=== PATIENT | female | born 1975 | race Caucasian/White ===

== ENCOUNTER 2016-09-25 10:01 | Emergency (ER) | payer MEDICAID ==
[~2016-09-25] VITALS: Ht 162.6 cm; Wt 96.4 kg
[~2016-09-25 10:01] MED LIST: ADIPEX-P37.5 MG PO; AMOXICILLIN 50500 MG PO; BACTRIM DS 8001 TAB PO; BIRTH CONTROL PO; BUSPAR DIVIDOSE30 MG PO; BUSPAR10 MG PO; CALCIUM 600600 M2 PO; CEFTIN500 MG PO; CIPRO500 MG PO; FLEXERIL10 MG PO; FLEXERIL5 MG PO; LORACET; LORTAB 5/500 501 TAB PO; MACROBID100 MG PO; MOTRIN 200200 MG/TAB PO; MOTRIN 800800 MG/TAB PO; MOTRIN600 MG PO; NO HOME MEDICATIONS; NORCO 325 MG-51 TAB PO; PERCOCET 325 MG1 TA2 PO; PERCR 7.5 PO; PHENAZOPYRIDIN200 M1 PO; PHENERGAN 25 TA25 MG PO; PHENERMINE; PHENTERMINE15 MG PO; PREDNISONE20 MG PO; PRISTIQ50 MG PO; PROMETHAZINE25 MG RC; PROVERA 10MG10 MG; PYRIDIUM 100MG100 MG PO; PYRIDIUM200 M1 PO; TRAZADONE HYDR100 MG PO; TRAZODONE HCL100 MG PO; TUSS PO; VENTOLIN0.09 MG IH; VICODIN 5/5001 UDTAB PO; VOLTAREN 75 DR75 MG PO
[2016-09-25 10:02] VITALS: BP 154/96; PULSE 98; TEMP 98.1
[2016-09-25] MEDS ORDERED: NORCO 325 MG-51 TAB PO (12:30)
== END 2016-09-25 12:47 | disposition home or self-care (01) ==
LOC: COL.ER 10:01
DX: R51 Headache (principal); F17.210 Nicotine dependence, cigarettes, uncomplicated

== ENCOUNTER → 2016-10-18 | Outpatient (CLI) | payer MEDICAID ==
[~2016-10-18] MED LIST changes: +DOXYCYCLINE 10100 MG PO; +PHENERGAN W/CO120 M1 PO; +PROAIR HFA0.09 MG/AC IH; +SEROQUEL50 MG PO; +TOPAMAX 100MG100 M1 PO; +WELLBUTRIN SR200 MG PO; +XANAX .25M0.25 MG/TA PO
== END ==
LOC: COL.RAD 11:47
DX: R51 Headache (principal)
CPT/HCPCS: A9585

== ENCOUNTER → 2016-10-30 | Outpatient (CLI) | payer MEDICAID | LOC: COL.RAD 12:00 | DX: R51 Headache (principal) ==

== ENCOUNTER 2017-01-30 22:44 | Emergency (ER) | payer MEDICAID ==
[~2017-01-30] VITALS: Ht 162.6 cm; Wt 95.5 kg
[~2017-01-30 22:44] MED LIST changes: -DOXYCYCLINE 10100 MG PO; -PHENERGAN W/CO120 M1 PO; -PROAIR HFA0.09 MG/AC IH; -SEROQUEL50 MG PO; -TOPAMAX 100MG100 M1 PO; -WELLBUTRIN SR200 MG PO; -XANAX .25M0.25 MG/TA PO
[2017-01-30 22:48] VITALS: BP 130/58; TEMP 97.7
[2017-01-30] MEDS ORDERED: DOXYCYCLINE 10100 MG PO (23:34)
[2017-01-30] MEDS ORDERED: PREDNISONE20 MG PO (23:34)
[2017-01-30] MEDS ORDERED: PHENERGAN W/CO120 M1 PO (23:34)
[2017-01-30] MEDS ORDERED: WELLBUTRIN SR200 MG PO (23:48)
[2017-01-30] MEDS ORDERED: SEROQUEL50 MG PO (23:49)
[2017-01-30] MEDS ORDERED: TOPAMAX 100MG100 M1 PO (23:49)
[2017-01-30] MEDS ORDERED: XANAX .25M0.25 MG/TA PO (23:50)
[2017-01-30] MEDS ORDERED: PROAIR HFA0.09 MG/AC IH (23:50)
[2017-01-31 01:07] VITALS: PULSE 79
== END 2017-01-31 01:06 | disposition home or self-care (01) ==
LOC: COL.ER 22:44
DX: J20.9 Acute bronchitis, unspecified (principal)
CPT/HCPCS: J7512

== ENCOUNTER 2017-03-17 17:00 | Emergency (ER) | payer MEDICAID ==
[~2017-03-17] VITALS: Ht 162.6 cm; Wt 95.0 kg
[~2017-03-17 17:00] MED LIST changes: +DOXYCYCLINE 10100 MG PO; +PHENERGAN W/CO120 M1 PO; +PROAIR HFA0.09 MG/AC IH; +SEROQUEL50 MG PO; +TOPAMAX 100MG100 M1 PO; +WELLBUTRIN SR200 MG PO; +XANAX .25M0.25 MG/TA PO
[2017-03-17 17:02] VITALS: BP 135/73; TEMP 98.8
[2017-03-17 18:05] VITALS: PULSE 103
== END 2017-03-17 18:06 | disposition home or self-care (01) ==
LOC: COL.ER 17:00
DX: M25.562 Pain in left knee (principal); F41.9 Anxiety disorder, unspecified; F31.9 Bipolar disorder, unspecified
CPT/HCPCS: L1830

== ENCOUNTER → 2024-05-18 | Outpatient (CLI) | payer SELFPAY ==
[~2024-05-18] MED LIST changes: +ADDERALL20 MG PO; +ATIVAN 1MG T1 MG/TAB PO; +MULTIVITAMIN200 MCG PO; +NEURONTIN600 MG/TAB PO; +NORCO 325 MG-7.1 TAB PO; +TOPAMAX50 MG PO; +ULTRAM 50MG TAB50 MG PO
== END ==
LOC: COL.RAD 07:39
DX: R14.0 Abdominal distension (gaseous) (principal); R10.84 Generalized abdominal pain
CPT/HCPCS: A9541-JZ